=== PATIENT | female | born 1980 | race Hispanic/Latino ===

== ENCOUNTER 2021-06-22 16:41 | Emergency (ER) | payer SELFPAY ==
[2021-06-22 17:38] LABS: #Eosinphils 0.1 10x3/uL (0.0-0.5); #Monocytes 0.7 10x3/uL (0.0-1.1); %Basophils 0.5 % (0.0-2.0); %Eosinophils 2.1 % (0.0-6.0); %Lymphocytes 26.4 % (18.0-47.0); %Monocytes 10.1 % (0.0-10.0); %Neutrophils 60.6 % (40.0-75.0); Hemoglobin 13.3 g/dL (12.0-15.5); Mean Corpuscular HGB CONC 35.2 g/dL (32.0-36.0); Mean Corpuscular Hemoglobin 30.1 pg (27.0-33.0); Mean Corpuscular Volume 85.5 fl (81.6-98.3); Mean Platelet Volume 9.3 fl (7.4-10.4); Platelet Count 316 10x3/uL (150-450); RBC Distribution Width 12.5 % (11.5-14.5); Red Blood Cell (RBC) Count 4.42 10x6/uL (3.90-5.03); White Blood Cell (WBC) Count 6.6 10x3/uL (3.5-10.5)
[2021-06-22 17:49] LABS: ALT (SGPT) 40 U/L (8-55); AST (SGOT) 30 U/L (5-34); Albumin 4.1 g/dL (3.5-5.0); Alkaline Phosphatase 102 U/L (40-110); Anion Gap 13 mmol/L (10-20); BUN (Urea Nitrogen) 10 mg/dL (7.0-18.7); Bilirubin, Total 0.5 mg/dL (0.2-1.2); Calc. Creatinine Clearance 0 mL/min (70-130); Carbon Dioxide 25 mmol/L (22-29); Chloride 102 mmol/L (98-107); Globulin 4.3 g/dL (2.4-3.5); Glucose 120 mg/dL (70-105); Lipase 30 U/L (8-78); Potassium 3.6 mmol/L (3.5-5.1); Protein, Total 8.4 g/dL (6.0-8.3); Sodium 136 mmol/L (136-145)
[2021-06-22 18:04] LABS: Bilirubin 1+ (Negative); Blood, Urine Negative (Negative); Clarity Slightly Cloudy (Clear); Glucose, Urine (Dipstick) Normal (Negative); Ketone, Urine 5 mg/dL (Negative); Leukocyte 100 (Negative); Nitrite Negative (Negative); Protein, Urine (Dipstick) 30 mg/dl (Neg-Trace)
[2021-06-22 18:05] LABS: Pregnancy Test - Urine (BHCG) Negative (Negative); Pregu Control Background? CLEAR/WHITE (CLR/WHITE); Pregu Control Bar Appear? YES (CONTROL BAR)
[2021-06-22 18:11] LABS: Bacteria/HPF 2+ HPF (None Seen); Mucous/LPF 3+ LPF (<2+); RBC/HPF 0-3 HPF (0-3)
[2021-06-22] MEDS ORDERED: Ketorolac Tromethamine 30 MG/ML VIAL ONE (18:15)
[2021-06-22] MEDS ORDERED: Ondansetron PF 4 MG/2 ML Vial ONE (18:15)
[2021-06-22] MEDS ORDERED: cefTRIAXone\\ROCEPHIN 1 GM VIAL ONE (18:40)
== END 2021-06-22 19:45 | disposition home or self-care (01) ==
LOC: CSHERS 16:41
DX: K29.70 Gastritis, unspecified, without bleeding (principal)
CPT/HCPCS: 74176; 80053; 81003; 81015; 81025; 83690; 85025; 96365; 96375; J0696; J1885; J2405

== ENCOUNTER 2021-12-18 17:27 | Emergency (ER) | payer SELFPAY ==
[~2021-12-18 17:27] MED LIST: Iopamidol 300 61% 100 ML VIAL FS ONE
[2021-12-18 18:38] LABS: #Basophils 0.1 10x3/uL (0.0-0.2); #Eosinphils 0.3 10x3/uL (0.0-0.5); #Monocytes 0.6 10x3/uL (0.0-1.1); #Neutrophils 7.3 10x3/uL (1.5-8.4); %Basophils 0.5 % (0.0-2.0); %Eosinophils 3.2 % (0.0-6.0); %Lymphocytes 21.3 % (18.0-47.0); %Monocytes 5.8 % (0.0-10.0); %Neutrophils 68.8 % (40.0-75.0); Hemoglobin 12.9 g/dL (12.0-15.5); Mean Corpuscular Hemoglobin 29.5 pg (27.0-33.0); Mean Corpuscular Volume 84.4 fl (81.6-98.3); Mean Platelet Volume 9.2 fl (7.4-10.4); Platelet Count 309 10x3/uL (150-450); RBC Distribution Width 12.9 % (11.5-14.5); Red Blood Cell (RBC) Count 4.37 10x6/uL (3.90-5.03); White Blood Cell (WBC) Count 10.6 10x3/uL (3.5-10.5)
[2021-12-18 18:45] LABS: BHCG - Serum Negative (NEGATIVE); Pregs Control Background? CLEAR/WHITE (CLR/WHITE); Pregs Control Bar Appear? YES (CONTROL BAR)
[2021-12-18] MEDS ORDERED: Ondansetron PF 4 MG/2 ML Vial ONE (18:46)
[2021-12-18] MEDS ORDERED: Morphine 4 MG/ML VIAL ONE (18:46)
[2021-12-18 18:54] LABS: ALT (SGPT) 25 U/L (8-55); AST (SGOT) 20 U/L (5-34); Albumin 4.1 g/dL (3.5-5.0); Alkaline Phosphatase 91 U/L (40-110); Anion Gap 14 mmol/L (10-20); BUN (Urea Nitrogen) 8 mg/dL (7.0-18.7); Bilirubin, Total 0.5 mg/dL (0.2-1.2); Calc. Creatinine Clearance 0 mL/min (70-130); Calcium 9.2 mg/dL (7.8-10.44); Carbon Dioxide 24 mmol/L (22-29); Chloride 102 mmol/L (98-107); Globulin 3.8 g/dL (2.4-3.5); Glucose 128 mg/dL (70-105); Lipase 16 U/L (8-78); Potassium 3.9 mmol/L (3.5-5.1); Protein, Total 7.9 g/dL (6.0-8.3); Sodium 136 mmol/L (136-145)
[2021-12-18 19:17] LABS: Bilirubin Neg (Negative); Blood, Urine Negative (Negative); Clarity Clear (Clear); Glucose, Urine (Dipstick) Normal (Negative); Ketone, Urine Negative (Negative); Leukocyte Negative (Negative); Nitrite Negative (Negative); Protein, Urine (Dipstick) Negative (Neg-Trace); Urobilinogen Normal mg/dL (Less than 2)
== END 2021-12-18 19:51 | disposition home or self-care (01) ==
LOC: CSHERS 17:27
DX: R10.33 Periumbilical pain (principal)
CPT/HCPCS: 74177; 80053; 81003; 83690; 84703; 85025; 96361; 96374; 96375; J2270; J2405; Q9967

== ENCOUNTER 2022-02-24 03:25 | Observation (INO) | payer SELFPAY ==
[2022-02-24] MEDS ORDERED: Morphine 4 MG/ML VIAL ONE (03:51)
[2022-02-24] MEDS ORDERED: Ondansetron PF 4 MG/2 ML Vial ONE ×2 (03:52→07:32)
[2022-02-24] MEDS ORDERED: Famotidine/PF 20 mg/2ml Vial ONE (03:52)
[2022-02-24] MEDS ORDERED: Morphine 2 MG/ML VIAL ONE (03:52)
[2022-02-24 03:55] LABS: Bilirubin Neg (Negative); Blood, Urine Negative (Negative); Clarity Slightly Cloudy (Clear); Glucose, Urine (Dipstick) 100 mg/dL (Negative); Ketone, Urine Negative (Negative); Leukocyte 500 (Negative); Nitrite Negative (Negative); Protein, Urine (Dipstick) 30 mg/dl (Neg-Trace); Urobilinogen Normal mg/dL (Less than 2); pH, Urine 6.5 (5.0-9.0)
[2022-02-24 04:01] LABS: Bacteria/HPF 2+ HPF (None Seen); RBC/HPF 0-3 HPF (0-3)
[2022-02-24 04:03] LABS: #Eosinphils 0.1 10x3/uL (0.0-0.5); #Monocytes 0.6 10x3/uL (0.0-1.1); #Neutrophils 10.1 10x3/uL (1.5-8.4); %Basophils 0.3 % (0.0-2.0); %Eosinophils 0.7 % (0.0-6.0); %Lymphocytes 13.9 % (18.0-47.0); %Monocytes 4.7 % (0.0-10.0); Hemoglobin 13.4 g/dL (12.0-15.5); Mean Corpuscular HGB CONC 35.8 g/dL (32.0-36.0); Mean Corpuscular Hemoglobin 29.9 pg (27.0-33.0); Mean Corpuscular Volume 83.5 fl (81.6-98.3); Mean Platelet Volume 9.3 fl (7.4-10.4); Platelet Count 353 10x3/uL (150-450); RBC Distribution Width 13.2 % (11.5-14.5); Red Blood Cell (RBC) Count 4.48 10x6/uL (3.90-5.03); White Blood Cell (WBC) Count 12.7 10x3/uL (3.5-10.5)
[2022-02-24 04:10] LABS: ALT (SGPT) 27 U/L (8-55); AST (SGOT) 21 U/L (5-34); Albumin 4.4 g/dL (3.5-5.0); Alkaline Phosphatase 91 U/L (40-110); Anion Gap 14 mmol/L (10-20); BUN (Urea Nitrogen) 11 mg/dL (7.0-18.7); Bilirubin, Total 0.8 mg/dL (0.2-1.2); Calc. Creatinine Clearance 0 mL/min (70-130); Calcium 9.4 mg/dL (7.8-10.44); Carbon Dioxide 21 mmol/L (22-29); Chloride 104 mmol/L (98-107); Estimated GFR 111; Globulin 3.8 g/dL (2.4-3.5); Glucose 170 mg/dL (70-105); Lipase 14 U/L (8-78); Potassium 3.7 mmol/L (3.5-5.1); Protein, Total 8.2 g/dL (6.0-8.3); Sodium 135 mmol/L (136-145)
[2022-02-24] MEDS ORDERED: cefTRIAXone\\ROCEPHIN 1 GM VIAL ONE (04:18)
[2022-02-24] MEDS ORDERED: Lorazepam 2 MG/ML VIAL ONE (05:36)
[2022-02-24 05:52] LABS: SARS-CoV-2 NAA Rapid Test Not Detected (NotDetected)
[2022-02-24] MEDS ORDERED: Ondansetron ODT 4 MG TAB SL PRN (06:45)
[2022-02-24] MEDS ORDERED: Ondansetron PF 4 MG/2 ML Vial IVP PRN ×2 (06:45→07:09)
[2022-02-24] MEDS ORDERED: Sodium Chloride 0.9% 1,000 ML IV SCH (06:45)
[2022-02-24] MEDS ORDERED: Dextrose 50% Abboject 50 ML SYRINGE SLOW IVP PRN (07:09)
[2022-02-24] MEDS ORDERED: Calcium Carbonate 500 MG ChewTAB PO PRN (07:09)
[2022-02-24] MEDS ORDERED: hydrALAZINE 20 MG/ML VIAL SLOW IVP PRN (07:09)
[2022-02-24] MEDS ORDERED: Dextrose 5% in Water 1,000 ML IV PRN (07:09)
[2022-02-24] MEDS ORDERED: Promethazine HCl 25 MG/ML VIAL IM PRN (07:09)
[2022-02-24] MEDS ORDERED: Mag-Al 1200 mg/1200 mg/30 ML UDCUP PO PRN (07:09)
[2022-02-24 07:18] VITALS: BMI 36.3
[2022-02-24] MEDS ORDERED: Bupivacaine PF 0.5% 30 ML VIAL ONE (07:31)
[2022-02-24] MEDS ORDERED: Rocuronium Bromide 10 MG/ML (10ML VIAL) ONE (07:32)
[2022-02-24] MEDS ORDERED: Dexamethasone 4 mg/ml Vial ONE (07:32)
[2022-02-24] MEDS ORDERED: PROPOFOL 20 ML ONE (07:32)
[2022-02-24] MEDS ORDERED: Lidocaine 1% PF 5 ML VIAL ONE (07:32)
[2022-02-24] MEDS ORDERED: Fentanyl 100 MCG/2 ML VIAL ONE ×2 (07:32→09:22)
[2022-02-24] MEDS ORDERED: Succinylcholine 200 MG/10 ml SYRINGE FS ONE (07:32)
[2022-02-24] MEDS ORDERED: Ketorolac Tromethamine 30 MG/ML VIAL ONE (09:22)
[2022-02-24] MEDS ORDERED: Glycopyrrolate 0.2 MG/ML 5 ML SYRINGE ONE (09:29)
[2022-02-24] MEDS: Morphine 2 MG/ML VIAL SLOW IVP PRN ×3 (11:01→19:24)
[2022-02-24] MEDS: Sodium Chloride 0.9% 1,000 ML IV SCH ×2 (11:03→17:35)
[2022-02-24] MEDS: Famotidine/PF 20 mg/2ml Vial SLOW IVP SCH ×2 (12:09→20:13)
[2022-02-24] MEDS ORDERED: Iopamidol 300 61% 100 ML VIAL FS ONE (14:22)
[2022-02-24 15:33] LABS: Pregnancy Test - Urine (BHCG) Negative (Negative); Pregu Control Background? CLEAR/WHITE (CLR/WHITE); Pregu Control Bar Appear? YES (CONTROL BAR)
[2022-02-24] MEDS: HYDROcodone/Acetaminophen 10/325 mg Tablet PO PRN (20:20)
[2022-02-25] MEDS: Morphine 2 MG/ML VIAL SLOW IVP PRN ×2 (00:57→13:05)
[2022-02-25] MEDS: Sodium Chloride 0.9% 1,000 ML IV SCH ×2 (07:10→09:34)
[2022-02-25] MEDS ORDERED: Enoxaparin Sodium 40 MG/0.4 ML SYRINGE SC SCH (09:00)
[2022-02-25] MEDS ORDERED: Polyethylene Glycol 3350 17 GM Packet PO SCH (09:00)
[2022-02-25] MEDS: HYDROcodone/Acetaminophen 10/325 mg Tablet PO PRN (09:38)
[2022-02-25] MEDS: Famotidine/PF 20 mg/2ml Vial SLOW IVP SCH (09:38)
[2022-02-25 16:40] VITALS: BP 107/57; TEMP 97.9
== END 2022-02-25 17:26 | disposition home or self-care (01) ==
LOC: CSHERS 03:25 → CSHTELE 06:20
PROVIDERS: ADMIT Surgery; ATTEND Family Medicine
PROC: 0WQF0ZZ Repair Abdominal Wall, Open Approach (ICD-10-PCS; principal; 2022-02-24)
PROC: 0DB80ZZ Excision of Small Intestine, Open Approach (ICD-10-PCS; 2022-02-24)
DX: K43.0 Incisional hernia with obstruction, without gangrene (principal); K55.9 Vascular disorder of intestine, unspecified; Z90.49 Acquired absence of other specified parts of digestive tract; Z20.822 Contact with and (suspected) exposure to COVID-19
CPT/HCPCS: 71045; 74177; 80053; 81003; 81015; 81025; 83605; 83690; 84484; 85025; 93005; 96361; 96365; 96375; G0378; J0696; J1100; J1650; J1885; J2060; J2270; J2405; J2704; J3010; J7050; Q9967; S0020; S0028; U0002

== ENCOUNTER 2023-05-30 14:59 | Emergency (ER) | payer SELFPAY ==
[2023-05-30 15:48] LABS: #Basophils 0.1 10x3/uL (0.0-0.2); #Eosinphils 0.3 10x3/uL (0.0-0.5); #Monocytes 0.6 10x3/uL (0.0-1.1); #Neutrophils 5.8 10x3/uL (1.5-8.4); %Basophils 0.6 % (0.0-2.0); %Eosinophils 3.4 % (0.0-6.0); %Lymphocytes 32.3 % (18.0-47.0); %Monocytes 5.5 % (0.0-10.0); %Neutrophils 57.7 % (40.0-75.0); Hematocrit 36.1 % (34.9-44.5); Hemoglobin 12.8 g/dL (12.0-15.5); Mean Corpuscular HGB CONC 35.5 g/dL (32.0-36.0); Mean Corpuscular Hemoglobin 30.3 pg (27.0-33.0); Mean Corpuscular Volume 85.5 fl (81.6-98.3); Mean Platelet Volume 9.1 fl (7.4-10.4); Platelet Count 337 10x3/uL (150-450); RBC Distribution Width 12.9 % (11.5-14.5); Red Blood Cell (RBC) Count 4.22 10x6/uL (3.90-5.03); White Blood Cell (WBC) Count 10.1 10x3/uL (3.5-10.5)
[2023-05-30 15:55] LABS: BHCG - Serum Negative (NEGATIVE); Pregs Control Background? CLEAR/WHITE (CLR/WHITE); Pregs Control Bar Appear? YES (CONTROL BAR)
[2023-05-30 16:01] LABS: ALT (SGPT) 32 U/L (8-55); AST (SGOT) 24 U/L (5-34); Alkaline Phosphatase 122 U/L (40-110); Anion Gap 14 mmol/L (10-20); BUN (Urea Nitrogen) 10 mg/dL (7.0-18.7); Bilirubin, Total 0.5 mg/dL (0.2-1.2); Calc. Creatinine Clearance 0 mL/min (70-130); Calcium 8.9 mg/dL (7.8-10.44); Carbon Dioxide 22 mmol/L (22-29); Chloride 105 mmol/L (98-107); Estimated GFR 111; Globulin 3.8 g/dL (2.4-3.5); Glucose 166 mg/dL (70-105); Potassium 3.4 mmol/L (3.5-5.1); Protein, Total 7.8 g/dL (6.0-8.3); Sodium 138 mmol/L (136-145)
[2023-05-30 16:55] LABS: Bilirubin Neg (Negative); Blood, Urine 150 (Negative); Clarity Clear (Clear); Glucose, Urine (Dipstick) 50 mg/dL (Negative); Ketone, Urine 15 mg/dL (Negative); Leukocyte Negative (Negative); Nitrite Negative (Negative); Protein, Urine (Dipstick) 30 mg/dl (Neg-Trace); Urobilinogen Normal mg/dL (Less than 2)
[2023-05-30] MEDS ORDERED: Morphine 4 MG/ML VIAL ONE (17:02)
[2023-05-30 17:20] LABS: Bacteria/HPF None Seen HPF (None Seen); CAUTI Indications for Culture Pelvic or flank pain; Mucous/LPF 2+ LPF (<2+); RBC/HPF 0-3 HPF (0-3); Squamous Epithelial 0-3 HPF (0-3); Urine Culture Reflex No No; WBC/HPF 0-3 HPF (0-3)
== END 2023-05-30 17:59 | disposition home or self-care (01) ==
LOC: CSHERS 14:59
DX: K43.9 Ventral hernia without obstruction or gangrene (principal)
CPT/HCPCS: 74177; 80053; 81001; 83690; 84703; 85025; 96374; J2270; Q9967

== ENCOUNTER 2024-05-04 20:27 | Emergency (ER) | payer SELFPAY ==
[~2024-05-04 20:27] MED LIST changes: -Iopamidol 300 61% 100 ML VIAL FS ONE; +Iopamidol 370 76% 100 ML VIAL ONE
[2024-05-04 22:24] LABS: Bilirubin Neg (Negative); Blood, Urine 50 (Negative); Clarity Clear (Clear); Glucose, Urine (Dipstick) Normal (Negative); Ketone, Urine Negative (Negative); Leukocyte 500 (Negative); Nitrite Negative (Negative); Protein, Urine (Dipstick) Negative (Neg-Trace); Urobilinogen Normal mg/dL (Less than 2)
[2024-05-04] MEDS ORDERED: HYDROmorphone 0.5 MG/0.5 ML SYRINGE ONE (22:25)
[2024-05-04] MEDS ORDERED: Ondansetron PF 4 MG/2 ML Vial ONE (22:25)
[2024-05-04 22:29] LABS: Pregnancy Test - Urine (BHCG) Negative (Negative); Pregu Control Background? CLEAR/WHITE (CLR/WHITE); Pregu Control Bar Appear? YES (CONTROL BAR)
[2024-05-04 22:40] LABS: Bacteria/HPF 1+ HPF (None Seen); CAUTI Indications for Culture Pelvic or flank pain; RBC/HPF 0-3 HPF (0-3); Squamous Epithelial 0-3 HPF (0-3)
[2024-05-04 22:41] LABS: Urine Culture Reflex No No
[2024-05-04 22:50] LABS: #Basophils 0.06 10x3/uL (0.0-0.2); #Eosinophils 0.61 10x3/uL (0.0-0.5); #Neutrophils 4.76 10x3/uL (1.5-8.4); %Basophils 0.7 % (0.0-2.0); %Eosinophils 6.9 % (0.0-6.0); %Lymphocytes 32.5 % (18.0-47.0); %Monocytes 5.7 % (0.0-10.0); Hematocrit 36.2 % (34.9-44.5); Hemoglobin 13.2 g/dL (12.0-15.5); Mean Corpuscular HGB CONC 36.5 g/dL (32.0-36.0); Mean Corpuscular Hemoglobin 31.2 pg (27.0-33.0); Mean Corpuscular Volume 85.6 fL (81.6-98.3); Mean Platelet Volume 9.3 fL (7.4-10.4); Platelet Count 300 10x3/uL (150-450); RBC Distribution Width 12.8 % (11.5-14.5); Red Blood Cell (RBC) Count 4.23 10x6/uL (3.90-5.03); White Blood Cell (WBC) Count 8.8 10x3/uL (3.5-10.5)
[2024-05-04 23:05] LABS: ALT (SGPT) 30 U/L (8-55); AST (SGOT) 19 U/L (5-34); Albumin 3.7 g/dL (3.5-5.0); Alkaline Phosphatase 114 U/L (40-110); Anion Gap 13 mmol/L (10-20); BUN (Urea Nitrogen) 10 mg/dL (7.0-18.7); Bilirubin, Total 0.3 mg/dL (0.2-1.2); Calc. Creatinine Clearance 0 mL/min (70-130); Carbon Dioxide 21 mmol/L (22-29); Chloride 109 mmol/L (98-107); Estimated GFR 108; Globulin 4.1 g/dL (2.4-3.5); Glucose 120 mg/dL (70-105); Lipase 24 U/L (8-78); Potassium 3.9 mmol/L (3.5-5.1); Protein, Total 7.8 g/dL (6.0-8.3); Sodium 139 mmol/L (136-145)
== END 2024-05-04 23:46 | disposition home or self-care (01) ==
LOC: CSHERS 20:27
DX: K42.9 Umbilical hernia without obstruction or gangrene (principal)
CPT/HCPCS: 36415; 74177; 80053; 81001; 81025; 83690; 85025; 96374; 96375; J1170; J2405; Q9967